=== PATIENT | male | born 1970 | race Caucasian/White ===

== ENCOUNTER 2024-03-05 18:34 | Day surgery (SDC) | payer BC, SELFPAY ==
[2024-03-05] VITALS (16 sets, daily range): BP systolic 108–150; BP diastolic 74–96; BMI 28.2
--- NOTE | 2024-03-05 12:23 | ED.GENMED ---
History of Present Illness
General
Chief Complaint: Abdominal Pain
Source: patient
Time Seen by Provider: 03/05/24 11:57
History of Present Illness
History of Present Illness:
53yoM with a history of type 2 diabetes, TIA, and GERD presenting with his for evaluation of abdominal pain. Patient reports right lower quadrant pain that began around 10 PM last night. The pain initially started while he was lying in bed.
The pain is described as sharp and has been constant since last night. The pain is improved today and is currently mild. Pain is worse with movement. He was seen by his PCP earlier today and was sent to the ED for concern for appendicitis.
Patient is otherwise asymptomatic and denies any nausea, vomiting, diarrhea, dysuria, testicular pain. No previous abdominal surgeries.
Past History
Past History
ED Past Medical History: CVA (tia) and Other (esophogeal strictures)
ED Past Surgical History: None
Social History
Tobacco: Non-smoker
Phy Exam
General Physical Exam
General Presentation: well appearing and no apparent distress
General age: appears stated age
General Skin: warm and dry
General Habitus: normal
General Mental: alert
Cardiovascular Exam
Cardiovascular Exam: regular rate/rhythm
Pulmonary Exam
Pulmonary Exam: lungs clear, no respiratory distress, no crackles and no wheezing
Gastrointestinal Exam
Gastrointestinal Exam: soft, non distended and tender (+Focal tenderness to the RLQ. No guarding or rigidity. )
Christa Coma Scale
Eye Opening: Spontaneous
Verbal Response: Oriented
Motor Response: Obeys Commands
GCS Total Score: 15
Skin Exam
Skin Exam: normal color and warm/dry
Psychiatric Exam
Psychiatric Exam: normal mood/affect
Course
Orders/Labs/Results
Orders:
Orders
03/05/24 12:06
Complete Blood Count/With Diff Urgent
Comprehensive Metabolic Panel Urgent
Lipase Urgent
Urinalysis Reflex To Culture Urgent
Date Specimen was Collected: 03/05/24
Time Specimen was Collected: 12:00
03/05/24 12:22
CT Abd/pel W Iv And Oral Contr Urgent
Comment:
Reason For Exam: RLQ pain
0.9% Sodium Chloride 1000 ml [Nss] 1,000 ml IV BOLUS
Iohexol [Omnipaque] See Protocol PO NOW STA
03/05/24 Dinner
NPO
Allow oral meds: Yes
Allow clear liquids: No
Regular
03/05/24 16:39
Dexamethasone Sod Phosphate [Decadron] 20 mg .ROUTE .STK-MED ONE
Fentanyl Citrate/Pf [Sublimaze] 100 mcg .ROUTE .STK-MED ONE
Lidocaine HCl/Pf [Xylocaine-Mpf 1% Vial] 50 mg .ROUTE .STK-MED ONE
Ondansetron Injectable [Zofran] 4 mg .ROUTE .STK-MED ONE
Propofol [Diprivan] 20 ml .ROUTE .STK-MED
Rocuronium Uvalde [Rocuronium] 50 mg .ROUTE .STK-MED ONE
03/05/24 16:40
Midazolam HCl [Versed] 2 mg .ROUTE .STK-MED ONE
03/05/24 17:00
HYDROmorphone [Dilaudid] 0.25 mg IV PACU-Q5MPRN PRN
HYDROmorphone [Dilaudid] 0.5 mg IV PACU-Q5MPRN PRN
Meperidine [Demerol] 12.5 mg IV PACU-Q5MPRN PRN
Normosol (Mult Electrolytes) [Normosol-R/Plasmalyte-A] 1,000 ml IV PER PROTOCOL
Ondansetron Injectable [Zofran] 4 mg IV PACU-ONCEPRN PRN
Prochlorperazine [Compazine] 5 mg IV PACU-ONCEPRN PRN
Notify MD As Directed
Notify physician if: for SDS patients with known or suspected sleep obstructive sleep apnea, monitor in the
PACU.
Notify MD for any apneic/desaturation episodes
O2 Therapy [RESP] Urgent
Titrate/Wean O2 to maintain O2 sat greater than (%): 92
Special Instructions: -Provide supplemental oxygen to achieve O2 sat of 92% or greater.
-After 15 min, may wean O2 and discontinue if patient is able to maintain O2 sat of 92%
or greater during recovery period.
If patient is a discharge home, without oxygen therapy, notify anestheiologist if
unable to maintain O2 SAT of 92% or greater on room air for MD clearance.
03/05/24 17:11
Piperacillin/Tazo 3.375 Gram [Zosyn] 3.375 gram in 50 ml IV NOW
03/05/24 17:16
Admit Patient As Directed
Co-Sign Provider:
Level of Care: Post Proc/Surg Recovery
Assign to:: Medical/Surgical
Physician / Group: [place]/general surgery
Diagnosis: Appendicitis
Reason for Overnight Stay: Standard of Care
Code Status As Directed
Resuscitation Status: Full Code
Acetaminophen [Tylenol] 650 mg PO Q4HPRN PRN
HYDROmorphone [Dilaudid] 0.5 mg IV Q3HPRN PRN
Ketorolac [Toradol] 10 mg IV Q6HPRN PRN
Ondansetron Injectable [Zofran] 4 mg IV Q6HPRN PRN
Oxycodone [Roxicodone] 5 mg PO Q4HPRN PRN
Activity As Directed
Activity Level: Out of Bed-Early Mobility
Anti-embolism (JULIA) Hose As Directed
Type: Thigh high
Intake/ Output As Directed
Frequency: Per unit guidelines
Pneumatic Compression Sleeves As Directed
Type: Knee high
Vital Signs As Directed
Frequency: Per unit guidelines
PRN Pain Medication Management As Directed
May give lesser potent ordered pain med per pt: Yes
preference::
Protocol:: Medication orders for pain may be administered in a
manner that supports deferring to patient preference
when the pt is:
- Requesting an ordered lesser potent pain medication.
Least to most potent pain medications are defined
as: acetaminophen < NSAID < tramadol < opioids
(morphine, oxycodone, hydromorphone).
- Requesting a lesser dose of the same medication IF
ORDERED.
- Requesting a less intrusive route of administration
if both routes are prescribed by the provider (PO <
IV).
03/05/24 17:17
Rx Incentive Spirometry [RESP] Routine
Frequency: q1h while awake
# of times per hour: 10
DX Deep Vein Thrombosis Video Routine
03/05/24 17:21
Diphenhydramine [Benadryl] 25 mg IV Q4HPRN PRN
03/05/24 17:30
0.9% Sodium Chloride 1000 ml [Nss] 1,000 ml IV 80 mls/hr
Normosol (Mult Electrolytes) [Normosol-R/Plasmalyte-A] 1,000 ml IV PER PROTOCOL
03/05/24 17:40
Bupivacaine 0.25%Pf/Epinephrin [Sensorcaine-Epi 0.25%-0.0005] 30 ml .ROUTE .STK-MED ONE
03/05/24 18:04
HYDROmorphone [Dilaudid] 1 mg .ROUTE .STK-MED ONE
03/05/24 18:11
Famotidine [Pepcid] 20 mg .ROUTE .STK-MED ONE
03/05/24 18:12
OR Pathology Routine
Pre-Operative Diagnosis: ACUTE APPENDICITIS
Post-Operative Diagnosis: ACUTE APPENDICITIS
Operative Procedure: LAPAROSCOPIC APPENDECTOMY
Surgeon: VICKY SCHMIDT
Circulating Nurse: PRYKOWSKI, GERARDO
Specimen Type: APPENDIX
03/05/24 18:18
Sugammadex Sodium [Bridion] 200 mg .ROUTE .STK-MED ONE
03/05/24 18:35
Acetaminophen [Tylenol] 650 mg PO Q4HPRN PRN
Diphenhydramine [Benadryl] 25 mg IV Q4HPRN PRN
HYDROmorphone [Dilaudid] 0.25 mg IV PACU-Q5MPRN PRN
HYDROmorphone [Dilaudid] 0.5 mg IV PACU-Q5MPRN PRN
HYDROmorphone [Dilaudid] 0.5 mg IV Q3HPRN PRN
Ketorolac [Toradol] 10 mg IV Q6HPRN PRN
Meperidine [Demerol] 12.5 mg IV PACU-Q5MPRN PRN
Ondansetron Injectable [Zofran] 4 mg IV PACU-ONCEPRN PRN
Ondansetron Injectable [Zofran] 4 mg IV Q6HPRN PRN
Oxycodone [Roxicodone] 5 mg PO Q4HPRN PRN
Prochlorperazine [Compazine] 5 mg IV PACU-ONCEPRN PRN
03/05/24 18:39
Naloxone [Narcan] 0.4 mg .ROUTE .STK-MED ONE
03/05/24 23:00
Piperacillin/Tazo 3.375 Gram [Zosyn] 3.375 gram in 50 ml IV PRE PROCEDURE
Piperacillin/Tazo 3.375 Gram [Zosyn] 3.375 gram in 50 ml IV PRE PROCEDURE
Abnormal Lab Results
03/05/24
12:06
Carbon Dioxide 32 H mmol/L
(22-30)
Glucose 102 H mg/dl
(70-99)
03/05/24 12:06
03/05/24 12:06
Vital Signs
Initial and Last Documented VS:
Initial Vital Signs
Temp Pulse Resp BP Pulse Ox
98.2 F 86 18 150/96 98
03/05/24 11:41 03/05/24 11:41 03/05/24 11:41 03/05/24 11:41 03/05/24 11:41
Last Documented Vital Signs
Temp Pulse Resp BP Pulse Ox
97.6 F 90 12 119/76 98
03/05/24 18:33 03/05/24 19:30 03/05/24 19:15 03/05/24 19:30 03/05/24 19:30
MDM/Problems Addressed
Differential Diagnosis Includes:
53yoM here with RLQ pain x 1 day. Sent here by PCP for concern for appendicitis. He is afebrile and hemodynamically stable. He is well appearing in no distress. No signs of peritonitis on abdominal exam. Differential diagnosis includes but is not
limited to: appendicitis, mesenteric adenitis, kidney stone, colitis, nonspecific abdominal pain
Initial ED plan: Check abdominal labs, UA, and CT abdomen. IV fluid bolus. He declines analgesics.
*Critical Care Note
Total Time (30-74mins, 75-104mins- exclusive of procedures): Not Applicable
Update Note
Update Note:
CT abdomen shows mild acute appendicitis. White count normal and remainder of labs unremarkable. Case was discussed with general surgery and patient was admitted for further management.
ED Attending Note
-
Portions of this chart may have been created with voice recognition software.� Occasional wrong word or��sound alike� substitutions may have occurred due to the inherent limitations of voice recognition software.
Discharge Plan
Departure
Patient Disposition: Admit
Date of Disposition: 03/05/24
Time of Disposition: 17:08
Presentation/result/management discussed w/ accepting MD/DO: Dr. Schmidt
Discharge Problem:
Acute appendicitis
Interventions
Interventions:
*Risk Screen - Suicide Last Done: 03/05/24 11:40
*General Assessment Last Done: 03/05/24 11:41
*Neglect/Abuse Screening Last Done: 03/05/24 11:41
ED- Fall Risk Assessment Last Done: 03/05/24 12:09
*ED COVID-19 Vaccine History Last Done: 03/05/24 12:09
*Nursing Disposition Last Done: 03/05/24 17:28
BX-Nuaxee-Mevmoemusj Assessment Last Done: 03/05/24 12:09
Discharge Date and Time
Discharge Date/Time: 03/05/24 17:28
[2024-03-05 12:26] LABS: % Basophils 0.5 % (0-2); % Eosinophils 3.6 % (0-6); % Immature Granulocytes 0.3 % (0-0.5); % Lymphocytes 29.4 % (20.5-51.1); % Monocytes 8.5 % (1.7-9.3); % Neutrophils 57.7 % (42.2-75.2); Absolute Eosinophils 0.3 10^3/uL (0-0.7); Absolute Lymphocytes 2.2 10^3/uL (1.2-3.4); Absolute Monocytes 0.6 10^3/uL (0.1-0.6); Absolute Neutrophils 4.2 10^3/uL (1.4-6.5); Hematocrit 43.2 % (39.0-52.0); Hemoglobin 15.6 g/dL (13.0-18.0); Mean Corp Hgb Conc. 36.1 g/dL (33.0-37.0); Mean Corpuscular Hgb 30.2 pg (27.0-31.0); Mean Corpuscular Volume 83.7 fL (80.0-94.0); Mean Platelet Volume 8.6 fL (7.4-10.4); Nucleated Red Blood Cells % 0 % (-); Platelet Count 184 10^3/uL (130-400); Red Blood Cell Count 5.16 10^6/uL (4.70-6.10); Red Cell Dist. Width 12.3 % (11.5-14.5); White Blood Cell Count 7.3 10^3/uL (4.8-10.8)
[2024-03-05 12:40] LABS: ALT (SGPT) 27 U/L (0-50); AST (SGOT) 25 U/L (17-59); Albumin 4.9 g/dl (3.5-5.0); Alkaline Phosphatase 85 U/L (38-126); Blood Urea Nitrogen 18 mg/dl (9-20); Calcium 9.9 mg/dl (8.4-10.2); Carbon Dioxide 32 mmol/L (22-30); Chloride 98 mmol/L (98-107); Glucose 102 mg/dl (70-99); Lipase 88 U/L (23-300); Potassium 3.7 mmol/L (3.5-5.1); Sodium 141 mmol/L (135-145); Total Bilirubin 0.9 mg/dl (0.2-1.3); Total Protein 7.4 g/dl (6.3-8.2); eGFR > 60.00
[2024-03-05] MEDS: OMNIPAQUE 50 ML PO (12:41)
[2024-03-05] MEDS: NSS 1000 IV ×2 (12:42→21:36)
[2024-03-05 12:44] LABS: Urine Albumin Negative (Neg - Trace); Urine Bilirubin Negative (Negative); Urine Character Clear (Clear); Urine Color Yellow; Urine Glucose Negative (Negative); Urine Ketone Negative (Negative); Urine Leukocyte Negative (Negative); Urine Nitrite Negative (Negative); Urine Occult Blood Negative (Negative); Urine Specific Gravity 1.015 (<1.030); Urine Urobilinogen Negative (Neg - 1+)
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
[2024-03-05] MEDS: ZOSYN 50 IV (17:22)
--- NOTE | 2024-03-05 17:33 | W.SUR.PREOP ---
Pre-Operative Surgical Note
-
I have examined this patient prior to the performance of the scheduled procedure.
The patient's condition is unchanged from the time of the current History and
Physical and the patient is able to undergo the scheduled procedure.
--- NOTE | 2024-03-05 18:29 | W.IMMPOSTOP ---
Addendum entered and electronically signed by Jose E Marsh MD 03/05/24 18:35:
[facility]# [id number]
Original Note:
Surgical Immed Post Op Note
-
Primary Surgeon: Maximo
Assisting Surgeon: None
Pre-op Diagnosis: Acute appendicitis
Post-op Diagnosis: Acute appendicitis
Procedure Performed: Laparoscopic appendectomy
Anesthesia Type: General
Specimen / Cultures:
1. Appendix
Estimated Blood Loss: 3 cc
Complications: None
Operative Findings:
1. Mild tip appendicitis, healthy base, no perforation or spillage
2. Mesentery taken with [employer], base with osborne load stapler
[2024-03-05 18:46] LABS: Glucose - Point of Care 92 mg/dl (70-99)
[2024-03-06 03:33] VITALS: BP 111/66
[2024-03-06 07:25] VITALS: BP 120/63
[2024-03-06] MEDS: NSS 1000 IV (09:08)
--- NOTE | 2024-03-06 09:59 | W.PN.GS2 ---
Today's Communication / Plan
-
Discharge to home
Assessment / Plan
-
53 yo male presenting with acute appendicitis now POD #1 lap appi
AFVSS
Tolerating diet
Progressing well post operatively
--Continue diet
--Analgesics prn
--Dispo planning
Subjective Data
-
Date of Service: March 06, 2024
Patient seen and examined at bedside. Denies n/v. Tolerating diet. Post op discomfort minimal and better than preop pain. Passing flatus.
Objective Data
-
Intake and Output
03/05/24 03/06/24 03/07/24
06:59 06:59 06:59
Intake Total 340 / 340
Balance 340 / 340
Intake:
Oral fluids 240 / 240
IV fluids (Total) 100 / 100
Normosol 100 / 100
Other:
Number of approximated MODERATE 1
amounts of urine
Vital Signs
Temp Pulse Resp BP Pulse Ox
97.4 F 87 16 120/63 96
03/06/24 07:25 03/06/24 07:25 03/06/24 07:25 03/06/24 07:25 03/06/24 07:25
Lab Results
03/05/24 12:06
03/05/24 12:06
Calcium 9.9 mg/dl (8.4-10.2) 03/05/24 12:06
Total Bilirubin 0.9 mg/dl (0.2-1.3) 03/05/24 12:06
AST 25 U/L (17-59) 03/05/24 12:06
ALT 27 U/L (0-50) 03/05/24 12:06
Alkaline Phosphatase 85 U/L (38-126) 03/05/24 12:06
Total Protein 7.4 g/dl (6.3-8.2) 03/05/24 12:06
Albumin 4.9 g/dl (3.5-5.0) 03/05/24 12:06
Physical Exam
-
NAD
ABD soft, nd, nt
Incisions well approximated, with intact glue and no erythema
--- NOTE | 2024-03-06 10:01 | W.DS.TRANS ---
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
-
Discharge Instructions:
Discharge Diagnosis/Procedures Appendicitis status post laparoscopic
appendectomy
Diet As tolerated,Regular
Additional Diets Eat small meals as tolerated
Activity No strenuous activity
Additional Activity Do not lift over 20lbs for the next 2-3 weeks
Driving Restrictions No driving for 24 hours
Bathing Restrictions OK to Shower
Wound Care The glue over your incisions will flake off over
the next 2-3 weeks. Avoid picking or scrubbing
off the glue.
Instructions:
Stand-Alone Forms:
Changes to Home Medications: No
Discharge Medications:
DC Medications w/original date entered in [employer]
acetaminophen 325 mg tablet 650 mg (2 x 325 mg) PO Q4HPRN PRN mild pain #1 tab 03/06/24
aspirin 81 mg tablet,delayed release 81 mg PO DAILY 03/06/24
ibuprofen 200 mg tablet 400 - 600 mg (2 - 3 x 200 mg) PO Q6HPRN PRN moderate pain #1 tab 03/06/24
metformin 500 mg tablet 500 mg PO DAILY 03/06/24
ranitidine HCl 75 mg tablet mg 03/06/24
Home Medication Changes
Pending Results: No
--- NOTE | 2024-03-06 11:04 | CM ---
Patient lives with spouse in a multilevel home, patient is independent with adl's and ambulation, no dme, patient drives.
Pharmacy [facility] on [address]
PCP: Dr. Merlos
Plan; Home today no needs.
[2024-03-06 11:38] VITALS: BP 120/75
== END 2024-03-06 11:56 | disposition home or self-care (01) ==
LOC: SDS 18:34
PROVIDERS: ATTENDING PHYSICIAN Surgery; EMERGENCY PHYSICIAN Emergency Medicine; FAMILY PHYSICIAN Family Medicine
DX: K35.80 Unspecified acute appendicitis (principal); R10.31 Right lower quadrant pain
CPT/HCPCS: 44970; 88304; 74177; 80053; 81003; 82962; 83690; 85025; 96361; 96365; 99285; C1776; Q9967

== ENCOUNTER → 2025-03-14 14:47 | Outpatient (REF) | payer BC, SELFPAY | LOC: HWRAD 14:47 | PROVIDERS: ATTENDING PHYSICIAN Family Medicine | DX: R22.1 Localized swelling, mass and lump, neck (principal) | CPT/HCPCS: 76536 ==

== ENCOUNTER → 2025-04-05 08:23 | Outpatient (REF) | payer BC, SELFPAY ==
[2025-04-05 08:35] VITALS: BP 150/81; BP_SYST 90
[2025-04-05 09:41] VITALS: BP 142/80; BP_SYST 90
[2025-04-05 09:50] VITALS: BP 142/80
== END ==
LOC: RADI 08:23
PROVIDERS: ATTENDING PHYSICIAN Family Medicine
DX: C73 Malignant neoplasm of thyroid gland (principal)
CPT/HCPCS: 20206; 76942; 88305; 88333

== ENCOUNTER → 2025-04-13 07:01 | Outpatient (REF) | payer BC, SELFPAY | LOC: RAD 07:01 | PROVIDERS: ATTENDING PHYSICIAN Family Medicine; OTHER PHYSICIAN Surgery | DX: C73 Malignant neoplasm of thyroid gland (principal); I10 Essential (primary) hypertension | CPT/HCPCS: 70491; Q9967 ==